=== PATIENT | female | born 1995 | race Caucasian/White ===

== ENCOUNTER 2019-03-23 11:26 | Emergency (ER) | payer MEDICAID | END 2019-03-23 13:37 | disposition home or self-care (01) | LOC: MED 11:26 | DX: J40 Bronchitis, not specified as acute or chronic (principal) | CPT/HCPCS: 99283 ==

== ENCOUNTER 2021-02-13 16:41 | Emergency (ER) | payer MEDICAID, OTHER ==
[~2021-02-13] VITALS: Ht 154.9 cm; Wt 79.4 kg
[2021-02-13 17:07] VITALS: BP 133/88
--- NOTE | 2021-02-13 17:13 | NUR ---
Patient ambulated with steady gait to bed 1.
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
--- NOTE | 2021-02-13 17:54 | NUR ---
Dr. Aquino is evaluating patient at bedside
[2021-02-13] MEDS ORDERED: ACETAMINOPHEN 325 MG TAB PO ONE (18:00)
[2021-02-13] MEDS ORDERED: IBUPROFEN 400 MG TAB PO ONE (18:00)
--- NOTE | 2021-02-13 18:05 | NUR ---
Pt transported to [facility] by
--- NOTE | 2021-02-13 18:37 | NUR ---
Pt reports minor relief to neck pain 6/10; no relief to low back pain remains 8/10.
[2021-02-13] MEDS ORDERED: IBUP-2213 PO (18:53)
[2021-02-13 18:58] VITALS: BP 121/72
== END 2021-02-13 19:02 | disposition home or self-care (01) ==
LOC: MED 16:41
DX: M54.9 Dorsalgia, unspecified (principal); M54.2 Cervicalgia; Z04.1 Encounter for examination and observation following transport accident; Z79.899 Other long term (current) drug therapy; V49.69XA Unspecified car occupant injured in collision with other motor vehicles in traffic accident, initial encounter; Y93.89 Activity, other specified; Y92.89 Other specified places as the place of occurrence of the external cause; Y99.8 Other external cause status
CPT/HCPCS: 72040; 72080; 81025; 99284; Q0092

== ENCOUNTER 2021-04-07 13:05 | Emergency (ER) | payer OTHER ==
[~2021-04-07] VITALS: Ht 154.9 cm; Wt 77.1 kg
[~2021-04-07 13:05] MED LIST: IBUP-2213 PO
[2021-04-07 13:13] VITALS: BP 117/75
[2021-04-07 14:12] LABS: BASOPHILS % (AUTO) 0.5 % (0.0-2.0); EOSINOPHILS # (AUTO) 0.1 K/uL (0-0.4); HEMATOCRIT 39.9 % (36-48); HEMOGLOBIN 13.5 g/dL (12.0-16.0); LYMPHOCYTES # (AUTO) 1.3 K/uL (2.5-16.5); LYMPHOCYTES % (AUTO) 21.4 % (20.5-51.1); MEAN CORPUSCULAR HEMOGLOBIN 28 pg (27-31); MEAN CORPUSCULAR HGB CONC 34 g/dL (33-37); MEAN CORPUSCULAR VOLUME 83.6 fL (80-94); MONOCYTES # (AUTO) 0.4 K/uL (0.8-1.0); MONOCYTES % (AUTO) 6.8 % (1.7-9.3); NEUTROPHILS # (AUTO) 4.3 K/uL (1.8-7.7); NEUTROPHILS % (AUTO) 69.3 % (42.2-75.2); PLATELET COUNT (AUTO) 330 K/uL (140-450); RED BLOOD CELL COUNT(AUTO) 4.77 MIL/uL (4.20-5.40); RED CELL DISTRIBUTION WIDTH 13.2 % (11.6-13.7); WHITE BLOOD COUNT (AUTO) 6.3 K/uL (4.8-10.8)
[2021-04-07 14:26] LABS: ANION GAP 13.9 (8-16); CREATININE 0.9 mg/dL (0.6-1.3); POTASSIUM 3.9 mmol/L (3.5-5.1)
[2021-04-07] MEDS ORDERED: IBUP-2213 PO (14:53)
[2021-04-07 15:02] VITALS: BP 111/70
== END 2021-04-07 15:04 | disposition home or self-care (01) ==
LOC: MED 13:05
DX: N93.9 Abnormal uterine and vaginal bleeding, unspecified (principal)
CPT/HCPCS: 80048; 81002; 81025; 85025; 86886; 86900; 86901; 99284

== ENCOUNTER 2023-04-11 08:41 | Emergency (ER) | payer OTHER ==
[~2023-04-11] VITALS: Ht 154.9 cm; Wt 72.6 kg
[2023-04-11 08:42] VITALS: BP 114/74; PULSE 110; RESP 15; TEMP 96.8; O2SAT 98
[2023-04-11] MEDS ORDERED: LIDOCAINE/EPI MPF 1%1:200000 30 ML VIAL INJ ONE (09:05)
== END 2023-04-11 10:30 | disposition home or self-care (01) ==
LOC: MED 08:41
DX: S61.217A Laceration without foreign body of left little finger without damage to nail, initial encounter (principal); Z79.1 Long term (current) use of non-steroidal anti-inflammatories (NSAID); W26.0XXA Contact with knife, initial encounter; Y93.89 Activity, other specified; Y92.89 Other specified places as the place of occurrence of the external cause; Y99.8 Other external cause status
CPT/HCPCS: 12001; 73130; 90471; 90715; 99283